=== PATIENT | female | born 1985 | race Caucasian/White ===

== ENCOUNTER 2019-05-11 09:01 | Emergency (ER) | payer OTHER, SELFPAY ==
--- NOTE | ~2019-05-11 | XR_ITS ---
EXAMINATION: [id number] EXAM DATE: 05/11/2019 09:55 INDICATION: Left-sided rib pain after coughing, symptoms one month. 31 weeks . TECHNIQUE: Frontal chest x-ray, frontal and oblique projections of the left ribs. There is no prior study for comparison. FINDINGS: The left 10th rib has a contour distortion, coarse alteration laterally, probably a fractu re. This is age indeterminate, clinical correlation. No confluent consolidation, pneumothorax or pleu ral effusion suspected. IMPRESSION: Age-indeterminate left 10th rib fracture laterally. Clinical correlation. Reviewed, dictated and finalized at location B. [place] IMPRESSION: Age-indeterminate left 10th rib fracture laterally. Clinical corre lation.
[2019-05-11 09:11] VITALS: BP 101/59; PULSE 103; RESP 20; TEMP 37.3; O2SAT 98
--- NOTE | 2019-05-11 09:19 | ED.URI ---
HPI - URI/Sore Throat General Chief Complaint: Upper Respiratory Infection Stated Complaint: cough/rib pain Time Seen by Provider: 05/11/19 09:19 Source: patient, family and RN notes reviewed History of Present Illness HPI Narrative: Patient is a 33-year-old female presents the urgent care with complaints of left-sided rib pain and chronic cough. Patient states that she has had upper respiratory-like symptoms with cough since before . Patient states that her son was diagnosed with RSV and she feels that both of them have been coughing since then. Patient states she has seen her OB since the cough started and was told to wait it out and use [id number] medications safe for . Patient states that last night she was bearing herself for a cough and felt a severe left-sided pop . Patient states that now it is difficult just to move due to the pain. Patient states that it is difficult to take a deep breath. Patient also reports an episode of chest pain after Mucinex. Patient denies fever, chills, nausea, vomiting. Currently denies chest pain or shortness of breath. No other acute complaints. Patient is tearful. Patient and spouse aware of the plan of care. Related Data Home Medications Medication Instructions Recorded Confirmed Mucinex 05/11/19 Vitamin 05/11/19 ascorbic acid (vitamin C) 05/11/19 Allergies Allergy/AdvReac Type Severity Reaction Status Date / Time amoxicillin Allergy Hives Verified 05/11/19 09:20 Review of Systems Review of Systems: Narrative: CONSTITUTIONAL: Denies fever, chills, or sweats. EYES: Denies visual changes, redness, or discharge. ENT: Denies rhinorrhea, congestion, sore throat, or otalgia. CARDIOVASCULAR: Denies chest pain, palpitations, or edema. RESPIRATORY: Reports of cough with difficulty taking deep breath GASTROINTESTINAL: Denies abdominal pain, nausea, vomiting, or diarrhea. GENITOURINARY: Denies dysuria or hematuria. SKIN: Denies rash or itching. MUSCULOSKELETAL: Denies back pain, joint pain, or myalgia. NEUROLOGIC: Denies headache, numbness, or weakness.PSYCHIATRIC: Denies anxiety or depression. PMFSH Comments At the time of my signature, I reviewed and agree with the nursing past medical, surgical, social, and family history. There is no relevant family history pertinent to the patient complaint. Exam Narrative: Exam Narrative: GENERAL: This is a well-nourished, well-developed patient, tearful HEAD: normocephalic, atraumatic. EYES: PERRL. Sclera clear/white. Vision is grossly intact. EARS: External ears normal, auditory canals clear and without drainage, TMs normal without perforation. Hearing grossly intact. NOSE: External nose normal with no obvious nasal discharge, erythemic bilateral nares with clear rhinorrhea THROAT: Mucous membranes moist, posterior pharynx clear. NECK: Neck supple CARDIOVASCULAR: Regular rate and rhythm without murmurs, gallops, or rubs. RESPIRATORY: Clear to auscultation. Breath sounds equal bilaterally. No wheezes, rales, or rhonchi. Obvious pain with deep breathing, shallow breathing. Extreme point tenderness to posterior lateral ribs and left lateral torso SKIN: warm, intact with no suspicious lesions or rash, good texture and turgor. NEURO: awake, alert, and oriented to person, place and time. There were no obvious focal neurologic abnormalities. EXTREMITIES: No clubbing, cyanosis, or edema. Course Vital Signs Vital signs: Vital Signs Temperature 99.2 F 05/11/19 09:11 Pulse Rate 103 H 05/11/19 09:11 Respiratory Rate 05/11/19 09:11 Blood Pressure 101/59 L 05/11/19 09:11 Pulse Oximetry 98 05/11/19 09:11 Temperature 99.2 F 05/11/19 09:11 Pulse Rate 103 H 05/11/19 09:11 Respiratory Rate 05/11/19 09:11 Blood Pressure 101/59 L 05/11/19 09:11 Pulse Oximetry 98 05/11/19 09:11 Reviewed MDM - URI/Sore Throat MDM Narrative Medical decision making narrative: Reviewed x-ray resul
--- NOTE | 2019-05-11 09:38 | PC.NURSE ---
After exam and discussion Ranjit Leblanc NP called and spoke with OB office at [facility]--[place]--will get a Left rib and one view CXR
== END 2019-05-11 10:18 | disposition home or self-care (01) ==
PROVIDERS: Emergency Provider Nurse Practitioner Family
DX: S22.32XA Fracture of one rib, left side, initial encounter for closed fracture (principal); X58.XXXA Exposure to other specified factors, initial encounter
CPT/HCPCS: 71101; 99213; G0463

== ENCOUNTER 2020-08-19 11:42 | Emergency (ER) | payer OTHER, SELFPAY ==
--- NOTE | ~2020-08-19 | US_ITS ---
EXAMINATION: US abdomen limited DATE: 08/19/2020 15:01 INDICATION: Right upper quadrant abdominal pain. TECHNIQUE: Multiple grayscale and Doppler ultrasound images of the abdomen were obtained. COMPARISON: None FINDINGS: Pancreas is normal. Liver has normal echogenicity and contour, with a smooth surface. No liver lesion identified. No intrahepatic biliary duct dilation suspected. Portal venous flow was seen in the hepa topetal, normal direction and has normal Doppler waveform. The gallbladder is normal in appearance. There is no cholelithiasis. The common bile duct measures 4 mm, which is normal. Sonographic Mason s ign was reported as negative by the [employer].The visualized proximal to mid inferior vena cava is normal. IMPRESSION: 1. Normal right upper quadrant ultrasound. Reviewed, dictated and finalized at location A.
[2020-08-19 11:47] VITALS: BP 103/63; PULSE 86; RESP 18; TEMP 36.3; O2SAT 99
[2020-08-19 12:05] LABS: Basophils Percent Auto 0.2 % (0.2-1.2); Eosinophils Absolute Auto 0.2 K/mm3 (0-0.3); Eosinophils Percent Auto 2.4 % (0-4.4); Hematocrit 41.9 % (37.0-47.0); Hemoglobin 13.9 g/dL (12.0-15.0); Immature Granulocyte Absolute 0.03 K/mm3 (0.00-0.031); Immature Granulocyte Percent A 0.4 % (0-0.5); Lymphocytes Absolute Auto 0.54 K/mm3 (0.9-3.2); Lymphocytes Percent Auto 6.7 % (18.3-44.2); Mean Corpuscular HGB Conc 33.2 g/dl (32-36); Mean Corpuscular Hemoglobin 28.8 pg (26-34); Mean Corpuscular Volume 86.9 fl (80-100); Mean Platelet Volume 9.9 fl (7.4-10.4); Monocytes Absolute Auto 0.4 K/mm3 (0.1-0.6); Monocytes Percent Auto 5.1 % (2.6-8.5); Neutrophils Absolute Auto 6.8 K/mm3 (1.3-6.7); Neutrophils Percent Auto 85.2 % (45.5-73.1); Platelet Count Result 220 k/mm3 (150-375); Red Blood Count 4.82 M/mm3 (4.2-5.4); Red Cell Distribution Width 13.4 % (11.5-14.5)
[2020-08-19 12:12] LABS: Add Urine Microscopic? YES; Appearance Urine Cloudy (Clear); Bacteria Urine Trace /hpf; Bilirubin Urine Negative (Negative); Blood Urine Negative (Negative); Color Urine Yellow (Yellow); Glucose Urine UA Negative (Negative); Ketones Urine Negative (Negative); Leukocyte Esterase Ur Negative LEU/UL (Negative); Mucus Urine Rare /lpf; Nitrate Urine Negative (Negative); Protein Urine Negative (Negative); Specific Grav Ur 1.023 (1.001-1.035); Squamous Epithelial Cell Urine Many /hpf (Few); Urobilinogen Urine Negative mg/dL (<2.0); WBC Urine 0-3 /hpf
[2020-08-19 12:13] LABS: Alanine Aminotransferase 15 U/L (4-35); Albumin Level 4.7 g/dL (3.5-5.1); Alkaline Phosphatase 60 U/L (38-126); Anion Gap 6 mmol/L (8-16); Aspartate Amino Transferase 27 U/L (14-36); Bilirubin,Total 0.6 mg/dL (0.2-1.3); Blood Urea Nitrogen 14 mg/dL (7-17); Calcium 8.5 mg/dL (8.4-10.2); Carbon Dioxide 24 mmol/L (22-30); Chloride 109 mmol/L (98-107); Estimated CRCL calculation 75 ml/min; Estimated Glomerular Filt Rate > 60; Glucose 96 mg/dL (65-105); Lipase 202 U/L (23-300); Potassium 3.8 mmol/L (3.4-5.0); Sodium 139 mmol/L (137-145)
--- NOTE | 2020-08-19 12:57 | PC.NURSE ---
Called to room, pt concerned with her saline lock IV. States she cannot bend her arm very well with the placement of IV. Pt c/o IV looking like it is not in correctly. Flushed saline lock with 10mls of NS - Flushes with no difficulty. Pt denies any requests at this time.
[2020-08-19 13:34] VITALS: BP 116/63; PULSE 67; RESP 18; O2SAT 95
[2020-08-19] MEDS: DICYCLOMINE HCL INJ 20 MG/2 ML VIAL IM (13:51)
[2020-08-19 14:46] VITALS: BP 101/59; PULSE 80; RESP 18; O2SAT 95
--- NOTE | 2020-08-19 16:20 | ED.ABDPAIN ---
HPI - Abdominal Pain General Chief Complaint: Abdominal Pain Stated Complaint: Abd Pain Time Seen by Provider: 08/19/20 12:00 Source: patient Mode of arrival: ambulatory Limitations: no limitations History of Present Illness HPI narrative: 35-year-old female In good health 2 prior C-sections Complains of crampy upper abdominal pain and some nausea She was seen by her PCP and there is some concern that this could be biliary disease Currently her symptoms are fairly mild, she has no vomiting or diarrhea, she denies any dysuria or hematuria Her last menstrual period was a month ago and she is about due, bedside is negative Related Data Allergies Allergy/AdvReac Type Severity Reaction Status Date / Time No Known Allergies Allergy Verified 08/19/20 11:51 Review of Systems Review of Systems: All systems reviewed & are unremarkable except as noted in HPI and below Constitutional: Constitutional: Reports no additional constitutional complaints, Denies chills, Denies fever(s) and Denies headache(s) Eyes: Eyes: Reports no additional eye complaints and Denies change in vision ENT: Denies headache(s) and Denies sore throat Cardiovascular: Cardiovascular: Denies chest pain and Denies dyspnea Respiratory: Respiratory: Denies cough and Denies dyspnea Gastrointestinal: Gastrointestinal: Reports abdominal pain, Denies constipation, Denies diarrhea, Reports nausea and Denies vomiting Genitourinary: Genitourinary: Denies hematuria, Denies urinary frequency, Denies nocturia and Denies dysuria Musculoskeletal: Musculoskeletal: Denies deformity and Denies numbness Integumentary/Breasts: Skin/Breast: Denies wounds Neurologic: Denies headache(s) Psychiatric: Psychiatric: Reports no additional psychiatric complaints Endocrine: Endocrine: Reports no additional endocrine complaints Hematologic/Lymphatic: Hematologic/Lymphatic: Reports no additional hematologic/lymphatic complaints Allergic/Immunologic: Allergic/Immunologic: Reports no additional allergic/immunologic complaints PMFSH Social History Social History Gender identity (if verbalized by the patient): Female Exam Const: General: cooperative, healthy appearing, no acute distress and alert Orientation/consciousness: patient oriented x3 (alert) HENMT: Head: normal to inspection, normocephalic and atraumatic Ears: external ears normal General nose exam: no epistaxis Eyes: Conjunctivae: conjunctivae normal EOM: EOMs intact bilaterally Neck: Neck: normal visual inspection, supple and no JVD Resp: Effort & Inspection: normal respiratory effort and not labored Auscultation: clear to auscultation bilaterally and other (BS =) Cardio: Rate: regular rate Rhythm: regular rhythm GI: Inspection: non-distended GI Palp: Yes Soft to palpation, Yes Tenderness to palpation present (GI), No Guarding due to palpation present (GI) and No Rebound tenderness present Other: She has mild tenderness in the right upper quadrant during inspiration and also a little bit of suprapubic tenderness There is no rebound or guarding There is no tenderness in the right lower quadrant or around McBurney's point : Other: Mild right-sided CVA tenderness Skin: General skin exam: normal color and no rashes or lesions noted Neuro: General: patient oriented x3 (alert) and moves all extremities Speech: normal speech Extrem: General: normal to inspection and no pedal edema Psych: Affect: normal affect Course Course Emergency Course: She is feeling quite a lot better at discharge after medications Discussed reassuring results of all her tests and that that would just suggest that she return if anything gets worse and recommend no further work-up at this point Vital Signs Vital signs: Vital Signs Temperature 36.3 C L 08/19/20 11:47 Pulse Rate 86 08/19/20 11:47 Respiratory Rate 18 08/19/20 11:47 Blood Pressure 103/63 08/19/20 11:47 Pulse Oximetry 99
[2020-08-19 16:26] VITALS: BP 101/59; PULSE 80; RESP 18; O2SAT 97
== END 2020-08-19 16:27 | disposition home or self-care (01) ==
PROVIDERS: Emergency Provider Emergency Medicine; PCP Internal Medicine
DX: R10.10 Upper abdominal pain, unspecified (principal)
CPT/HCPCS: 36415; 76705; 80053; 81001; 81025; 83690; 85025; 96372; 99284; J0500

== ENCOUNTER 2021-04-10 08:35 | Outpatient (CLI) | payer OTHER, SELFPAY ==
--- NOTE | 2021-04-10 08:45 | ECG_ITS ---
Measurements Intervals [place] Rate: 60 P: 74 HI: 137 QRS: 69 QRSD: 95 T: 42 QT: 389 QTc: 389 Interpretive Statements SINUS RHYTHM INCOMPLETE RIGHT BUNDLE BRANCH BLOCK BASELINE ARTIFACT- I, II, III, AVR, AVL, AVF BORDERLINE ECG Electronically Signed On 04-10-2021 16:48:14 CURRICULUM DIRECTOR by Maged Velasquez D.O.
[2021-04-10 09:21] LABS: Hematocrit 42.2 % (37.0-47.0); Hemoglobin 14.3 g/dL (12.0-15.0)
== END 2021-04-10 08:36 | disposition home or self-care (01) ==
LOC: ANHSURGERY 08:39
PROVIDERS: Anesthesiology; PCP Internal Medicine; Visit Provider Surgery Plastic and Reconstructive Surgery
DX: Z41.1 Encounter for cosmetic surgery (principal); I45.10 Unspecified right bundle-branch block
CPT/HCPCS: 36415; 85014; 85018; 93005

== ENCOUNTER 2021-04-13 00:34 | Day surgery (SDC) | payer OTHER, SELFPAY ==
[2021-04-04 15:48] VITALS: BMI 26.2
--- NOTE | 2021-04-04 15:58 | PC.NURSE ---
Report to the Outpatient Waiting Room, entrance under the green pavilion located off [facility], at time 6:00 on date 04/13/21. OR Time: 7:30. - You and your visitor will be asked a series of questions to screen for COVID 19 for your protection. - A mask is required within the hospital. - Only one visitor is allowed at this time. Patient visitors will be guided where to wait when not with patient. Preoperative COVID Testing Requirements: No COVID Test needed if: (proof is required; if not received patient will have Rapid Test prior to entry) - Patient has received COVID Vaccine at least 14 days prior to procedure date or - Patient has positive COVID test result within last 90 days of surgery date. COVID Test needed if above criteria is not met If not COVID vaccinated a COVID test must be conducted within 72 hours of surgery and patient is asked to isolate self from time of testing until procedure. You will go to the [facility] for your COVID testing. The [facility] is located at the corner of [address] [facility]. You will only be called if COVID results are positive and your surgeon may reschedule your elective surgery date. Patients may have clear liquids (water, carbonated beverages, clear teas, apple juice) until 3 hours prior to surgery with a maximum of 20 ounces. - No food from midnight until time of surgery - Infants may have breast milk until 4 hours before surgery, infant formula 6 hours prior to surgery. - Children will be allowed to drink immediately following surgery. If applicable, please bring a bottle or sippy cup to assist with drinking. Juice, water, soda, and popsicles are readily available. For infants on formula, please bring formula the day of surgery. Pacifiers are allowed. Take the following medications with a SIP of water the morning of surgery: ANXIETY PILL IF NEEDED Medications to discontinue per physician: N/A Date to take last dose: N/A Please no make-up, nail mongolian, hairspray, perfume, deodorant, or body powder the day of surgery. No jewelry (including any body piercings) or valuables the day of surgery, leave them at home. Please take a shower or bath the night before, or the morning of, surgery with an antibacterial soap. Wear comfortable, loose fitting clothing. Children are encouraged to wear pajamas. - Jewelry must be removed prior to entering the operating room. Rings and piercings that are not removed may be cut off. - The hospital will not accept responsibility for valuables. - Please leave all valuables, including medications, at home the day of surgery. If you are going home after surgery, a licensed bellman driver must drive you home. - NO public transportation without another adult. - We recommend that an adult stay with you for 24 hours following discharge. - We also recommend that you do not drive, make important decision, drink alcoholic beverages, or take any drugs that were not prescribed by your health care provider for at least 24 hours after your discharge time. For Pediatric surgeries, we recommend two adults accompany the child home (only one inside the building at this time). Follow any additional instructions given to you from your surgeon. Telephone instructions given to MICHELLE BIGGS and asked if any additional questions and then verbalized understanding. Patient advised to call surgeon office or pre surgery nurse liaison [phone] if any additional questions.
--- NOTE | 2021-04-12 14:02 | P.PNAN_ITS ---
Anes - Initial Pre Proc Eval Procedure: Operation Date: 04/13/21 07:30 Proposed Procedures p Bilateral Breast Augmentation, - Jose Eduardo Frank MD s Abdominoplasty with Liposuction - Jose Eduardo Frank MD Date/Time: 04/12/21 14:02 Surgeon: Jose Eduardo Frank MD Pre Op Diagnosis: micromastia, skin laxity Patient Data Age: 35 Gender: F Height: 1.7 m Weight: 75.75 kg Allergies Allergy/AdvReac Type Severity Reaction Status Date / Time No Known Allergies Allergy Verified 04/04/21 15:47 Home Medications Medication Instructions Recorded Confirmed Type norethindrone 1 mg-ethinyl 1 tablet PO DAILY 11/22/20 04/04/21 History estradiol 10 mcg (24)-iron 10 mcg(2) tablet docusate sodium 100 mg capsule 100 mg PO DAILY #14 cap 03/30/21 04/04/21 Rx ondansetron HCl 4 mg tablet 4 mg PO Q8H #21 tablet 03/30/21 04/04/21 Rx carisoprodol 350 mg tablet 350 mg PO TID PRN #21 tablet 03/31/21 04/04/21 Rx diazepam 5 mg tablet 5 mg PO TID PRN #7 tablet 03/31/21 04/04/21 Rx oxycodone-acetaminophen 5 mg-325 1 tablet PO Q6H PRN #30 tablet 03/31/21 04/04/21 Rx mg tablet Patient hx anesthesia problems: none Family hx anesthesia problems: none Results Review: All pre-operative results and documents have been reviewed as part of the pre-operative evaluation. [facility] Past Medical History Medical History (Updated 04/12/21 @ 14:03 by Cale Moreira DO) Migraine Surgical History Surgical History History of Social History Social History Smoking status: Never smoker Alcohol intake: current Drinks per week: 1 Substance use: never Substance use type: does not use Living arrangements: with family Gender identity (if verbalized by the patient): Female Spiritual care concerns: No Anes - Eval Final PreProcedure Day of Procedure 04/12/21 14:02 Patient weight: overweight Heart: regular rate and rhythm Lungs: clear to auscultation and normal air movement Airway: Mallampati scale class II Neurological: alert and oriented Last oral intake: >/= 8 hours ASA classification: II Emergent: no Anesthetic plan: proceed Anesthesia type and monitoring: general ETT and standard monitoring Results Review: All pre-operative results and documents have been reviewed as part of the pre-operative evaluation. Informed Consent: The patient's anesthetic plan and its attendant risks and benefits were discussed with the patient/family/POA. Questions were solicited and answers provided to the satisfaction of the patient/family/POA.
[2021-04-13] VITALS (13 sets, daily range): BP systolic 93–121; BP diastolic 56–76; PULSE 80–94; RESP 16–20; TEMP 36.4–36.9; O2SAT 93–100
[2021-04-13 06:33] LABS: Urine Cotinine NEGATIVE
[2021-04-13] MEDS: LACTATED RINGERS 1,000 ML 30 ML IV CONT ×2 (06:38→12:38)
--- NOTE | 2021-04-13 07:13 | W.PM.PROC2 ---
Procedure Note - Detailed Date of Procedure 04/13/21 Pre-op Diagnosis micromastia, skin laxity, localized adiposity Post-op Diagnosis same Procedure Performed 1. Bilateral breast augmentation 2. Progressive tension abdominoplasty 3. Suction lipectomy abdomen Surgeon Jose Eduardo Frank MD Anesthesia general Findings Bilateral Dual plane 2 augmentation Jessica Saline implants filled to 440cc Right REF#[id number] SN [id number] Left REF# [id number] SN [id number] Suction lipectomy volume 2350 cc Abdominoplasty weight 1514 grams Description of Procedure She is here today for the above. Previously and again today the risks, benefits, alternatives were discussed in extensive detail. I wanted them to be very realistic about the risks involved as well as expectations. We discussed aftercare and what to monitor for. I was very upfront about the risks of wound breakdown leading to loss of skin, open wounds, and need for additional procedures with permanent abdominal deformity. We discussed DVT/PE risks and management. Made sure answered all of their questions to their satisfaction today and consent was obtained. Marked in the preoperative holding area with their verification. The patient was taken to the operating room placed supine on the operating table. Anesthesia was provided by anesthesiology. A surgical time-out was taken. We cleansed the skin and 1% lidocaine and 0.25% Marcaine with epinephrine was used anesthetize as a field block. She was prepped and draped in a standard sterile fashion. Breast Tegaderm nipple Nieves were placed. A 15 blade used to make an incision along the inframammary fold. Dissection was continued at 45 degree angle until the chest wall as identified. I incised the pectoralis major along its inferior border and completely released the inferior border leaving the medial border intact. I created a subpectoral pocket in the appropriate dimensions based on our preoperative planning for the implant. I then copiously irrigated with saline solution and verified a strict hemostasis. Next the use a triple antibiotic and Betadine containing solution to irrigate the pocket. I washed my gloves with the triple antibiotic and Betadine solution. We washed the implant immediately upon opening it with this solution and only opened it when we needed it. Air was removed from the implant on the back table, was introducted into the pock, and filled with a fill kit to the volume as above. Having verified positioning of the implant this was closed using 2-0 Vicryl followed by 3-0 Monocryl in a running subcuticular 4-0 Monocryl followed by tissue glue. Abdomen A 5mm liposuction basket cannula was utilized to provide discontinuous undermining. S.A.F.E. liposuction was completed in multiple planes and passes based on preoperative planning and rolling pinch test for abdomen. Patient was prepped 360 and I turned her side to side during this portion of the procedure. A 10 blade was used to make the upper incision. I continued dissection down to the level of fascia. Elevated just what was necessary for repair of the diastasis. I then again flexed the bed to verify the upper skin flap would reach the lower markings without tension. Once verified I placed her supine once again and a 10 blade used to make the lower incision. I elevated up to level the umbilicus and left the umbilicus intact on a well-vascularized stalk. The intervening tissue was removed. A 2 mm blunt cannula with 0.5% bupivicaine was injected deep to the fascia bilaterally. I plicated the diastasis recti using 0 PDO stratafix barbed suture. This was in 2 separate layers using 2 separate sutures as well. I repaired around the umbilicus leaving plenty of room for well-vascularized stalk of the umbilicus with 2-0 PDS. I also repaired lateral to the rectus using two layers of 0 PDO stratafix. The patient was flexed and starting from superior to inferior began plication using
[2021-04-13] MEDS: TRANEXAMIC ACID 1,000MG/ISO100 1,000 MG/100 ML BAG 200 MG IVPB (07:25)
--- NOTE | 2021-04-13 07:26 | WPDHPUPDATE1 ---
History and Physical Update Update Date/Time: 04/13/21 07:26 History and Physical has been reviewed, including an updated exam of the patient. There are NO changes in the patient's condition. Risks, benefits, and alternatives have been discussed and questions answered. Patient agrees to proceed with procedure.
[2021-04-13] MEDS: ceFAZolin 2 GM/D5W 50 ML 2 GM/50 ML BAG IVPB (07:31)
[2021-04-13] MEDS: LACTATED RINGERS IRRIG 1,000 ML, LIDOCAINE HCL 1% LOCAL INJ 50 ML, EPINEPHrine HCL INJ ... INFILTRATE (07:31)
[2021-04-13] MEDS: LIDO 1%/EPINEPHRINE 1:100,000 50 ML VIAL 30 ML INFILTRATE (07:31)
[2021-04-13] MEDS: BUPIVACAINE HCL 0.5% PF 30 ML VIAL 50 ML INFILTRATE (09:32)
[2021-04-13] MEDS: ceFAZolin SODIUM 1 GM VIAL IV PUSH (11:55)
--- NOTE | 2021-04-13 12:11 | SUR.OPER ---
ebl:100CC, uRINE:150CC
--- NOTE | 2021-04-13 13:19 | SUR.PHASEI ---
Simple mask removed at 1316.
[2021-04-13] MEDS: fentaNYL CITRATE INJ (*CRX) 100 MCG/2 ML VIAL 25 MCG IV PUSH ×3 (13:30→14:06)
--- NOTE | 2021-04-13 14:50 | ADMGEN ---
1432-This patient, Tawana Shafer, was admitted to OB 2nd Floor Room 289-00. Patient/family oriented to hospital policies and general routines including ID bracelet, bed and alarms, visiting hours, pain management, procedures, bathroom and other care routines, personal items, smoking policy, room service/diet, and visiting hours. Information on how to activate the Rapid Response Team has been discussed. Patient/Family are encouraged to report perceived risks to care and to ask questions if they do not understand what they are told or what they should do.
[2021-04-13] MEDS: MORPHINE SULFATE (*CRX) 2 MG/ML INJ IV PUSH ×3 (15:03→20:59)
[2021-04-13] MEDS: LACTATED RINGERS 1,000 ML 125 ML IV CONT ×2 (15:04→22:51)
[2021-04-13] MEDS: oxyCODONE/ACETAMINOPHEN (*CRX) 5-325 MG TABLET PO ×2 (16:35→22:55)
[2021-04-13] MEDS: carisoprodoL (*CRX) 350 MG TABLET PO (17:39)
[2021-04-13] MEDS: ENOXAPARIN 40 MG/0.4 ML SYRINGE SUB-Q (18:51)
[2021-04-13] MEDS: DOCUSATE SODIUM 100 MG CAPSULE PO (20:59)
[2021-04-14 00:30] VITALS: BP 101/68; PULSE 93; RESP 18; TEMP 36.6; O2SAT 98
[2021-04-14] MEDS: carisoprodoL (*CRX) 350 MG TABLET PO ×2 (01:07→08:31)
[2021-04-14] MEDS: MORPHINE SULFATE (*CRX) 2 MG/ML INJ IV PUSH ×2 (01:07→04:23)
[2021-04-14 04:00] VITALS: BP 88/60; PULSE 95; RESP 16; TEMP 36.4; O2SAT 95
[2021-04-14 08:00] VITALS: BP 92/45; PULSE 81; RESP 18; TEMP 36.6
--- NOTE | 2021-04-14 08:21 | WPDPN ---
Progress Note: A&P Assessment and Plan (1) Skin laxity: Code(s): L57.4 - Cutis laxa senilis Status: Acute Assessment and Plan: She is doing very well after bilateral breast augmentation, progressive tension abdominoplasty, suction lipectomy of abdomen. Will discharge home. Follow up. Today we had a lengthy discussion about the care. What monitor for. When to proceed to the ER/dial 911. She understands we are available for any questions or concerns. We will see her back. (2) Micromastia: Code(s): N64.82 - Hypoplasia of breast Status: Acute (3) Localized adiposity: Code(s): E65 - Localized adiposity Status: Acute Subjective Date/time seen: 04/14/21 07:30 Overnight had significant discomfort. She says this morning she is much improved. No fevers or chills. No nausea vomiting. No shortness of breath. No chest pain. No calf tenderness. She has been ambulating. She has been tolerating diet. She has been able to void 2 times overnight. Review of Systems Review of Systems: All systems reviewed & are unremarkable except as noted in HPI and below Exam Narrative: Alert and oriented no obvious distress Respiratory unlabored Bilateral breasts are soft. No signs of infection. No hematoma. No seroma. Abdomen is healing well. No signs of infection. No hematoma. No seroma. Good color and capillary refill No calf tenderness. Negative Homans. Objective Data Vital Signs Vital Signs: Vital Signs - 24 hr 04/13/21 12:38 04/13/21 12:50 04/13/21 13:05 Temperature 36.6 C Pulse Rate 87 85 81 Respiratory Rate 20 18 16 Blood Pressure 112/74 114/75 118/75 Pulse Oximetry 100 100 100 04/13/21 13:20 04/13/21 13:35 04/13/21 13:50 Temperature 36.6 C 36.4 C 36.6 C Pulse Rate 85 81 83 Respiratory Rate 18 16 18 Blood Pressure 115/75 111/72 112/74 Pulse Oximetry 96 97 99 04/13/21 14:05 04/13/21 14:20 04/13/21 14:25 Temperature Pulse Rate 94 88 Respiratory Rate 20 18 Blood Pressure 121/76 110/72 Pulse Oximetry 95 95 95 04/13/21 14:35 04/13/21 14:40 04/13/21 19:06 Temperature 36.9 C 36.8 C Pulse Rate 94 88 87 Respiratory Rate 16 18 16 Blood Pressure 107/69 111/71 Pulse Oximetry 93 95 97 04/14/21 00:30 04/14/21 04:00 Temperature 36.6 C 36.4 C Pulse Rate 93 95 Respiratory Rate 18 16 Blood Pressure 101/68 88/60 L Pulse Oximetry 98 95 Intake/Output Intake/Output: Intake & Output 04/11/21 04/12/21 04/13/21 04/14/21 23:59 23:59 23:59 23:59 Intake Total 2330 1680 Output Total 785 700 Balance 1545 980 Meds/Results Medications: Active Medications Generic Name Dose Route Start Last Admin Trade Name Freq PRN Reason Stop Dose Admin Carisoprodol 350 mg 04/13/21 18:00 04/14/21 01:07 Carisoprodol (*Crx) 350 Mg Tablet PO 350 mg Q6HR [place] Administration Diazepam 5 mg 04/13/21 12:26 Diazepam (*Crx) 5 Mg Tablet PO TID PRN Anxiety Docusate Sodium 100 mg 04/13/21 21:00 04/13/21 20:59 Docusate Sodium 100 Mg Capsule PO 100 mg Q12HR [place] Administration Enoxaparin Sodium 40 mg 04/13/21 19:00 04/13/21 18:51 Enoxaparin 40 Mg/0.4 Ml Syringe SUB-Q 40 mg DAILY [place] Administration Lactated Ringer's 1,000 mls @ 125 mls/hr 04/13/21 12:30 04/14/21 06:01 Lr - Lactated Ringers Iv IV CONT Infused .Q8H [place] Infusion Morphine Sulfate 2 mg 04/13/21 12:26 04/14/21 04:23 Morphine Sulfate (*Crx) 2 Mg/Ml Inj IV PUSH 2 mg Q2H PRN Administration Pain Ondansetron HCl 4 mg 04/13/21 12:26 Ondansetron Inj 4 Mg/2 Ml Vial IV PUSH Q6H PRN Nausea Oxycodone/Acetaminophen 1 - 2 tablet 04/13/21 12:26 04/13/21 22:55 Oxycodone/Acetaminophen (*Crx) 5-325 Mg Tablet PO 1 tablet Q6H PRN Administration Pain
--- NOTE | 2021-04-14 08:26 | P.DS_ITS ---
DS: Admitting Diagnosis Discharge Date 04/14/2021 Admitting Diagnosis 1. Micromastia 2. Skin laxity 3. Localized adiposity DS: Discharge Diagnosis Discharge Diagnosis (1) Micromastia: Code(s): N64.82 - Hypoplasia of breast Status: Acute (2) Skin laxity: Code(s): L57.4 - Cutis laxa senilis Status: Acute (3) Localized adiposity: Code(s): E65 - Localized adiposity Status: Acute DS: Summary Hospital Course Hospital Course: She underwent bilateral breast augmentation, progressive tension abdominoplasty, and suction lipectomy of abdomen uneventfully. Postoperatively she has done well. Pain controlled. Ambulating. Tolerating diet. Will discharge home. Time Spent with Patient Time attestation: Total time spent providing and/or coordinating discharge services: 25 minutes Exam Narrative: Alert and oriented no obvious distress Respiratory unlabored Bilateral breasts are soft. No signs of infection. No hematoma. No seroma. Abdomen is healing well. No signs of infection. No hematoma. No seroma. Good color and capillary refill No calf tenderness. Negative Homans. Discharge Plan Discharge Patient Disposition: Home, Self-Care Discharge Instructions: POST OPERATIVE DISCHARGE INSTRUCTIONS JOSE EDUARDO FRANK M.D. [facility] [address] [place] [address] * No driving for 24 hours after anesthesia and while you are taking pain m edication. * Take all prescribed medication as directed * Diet as tolerated. * No lifting or activity that raises blood pressure for 48 hours. * Regular walking / ambulation. * No showering until directed to. Once you shower do not take pain medication before showering as the combination of medication and heat may cause you to feel dizzy or pass out. * No pools or tubs for 2 weeks. * Call with any questions or concerns. * Slowly stand up straight as tolerated over the week. * No straining or lifting more than 23 pounds for 6 weeks. * Dressing Care: May shower. Continue compression 23 hours per day with surgical bra / abdominoal binder. If you have any questions or concerns, please call the office . If it is after hours you will be directed to the senior information security analyst exchange. Shortness of b reath, chest pain, or other medical emergency dial 911 / proceed to the Emergency Room. Stand Alone Forms: General Discharge Instructions Follow-up/Referrals: Jose Eduardo Frank MD [Physician] - 1 Week Discharge Medications: Continued Lo Loestrin Fe 1 mg-10 mcg (24)/10 mcg (2) tablet 1 tablet PO DAILY RF: 0 ondansetron HCl [Zofran] 4 mg tablet 4 mg PO Q8H Qty: 21 RF: 0 docusate sodium [Colace] 100 mg capsule 100 mg PO DAILY Qty: 14 RF: 0 carisoprodol [Soma] 350 mg tablet 350 mg PO TID PRN (Reason: muscle pain) Qty: 21 RF: 0 oxycodone-acetaminophen [Percocet] 5-325 mg tablet 1 tablet PO Q6H PRN (Reason: pain) Qty: 30 RF: 0 diazepam [Valium] 5 mg tablet 5 mg PO TID PRN (Reason: anxiety) Qty: 7 RF: 0
[2021-04-14] MEDS: ENOXAPARIN 40 MG/0.4 ML SYRINGE SUB-Q (08:29)
[2021-04-14] MEDS: DOCUSATE SODIUM 100 MG CAPSULE PO (08:30)
[2021-04-14] MEDS: oxyCODONE/ACETAMINOPHEN (*CRX) 5-325 MG TABLET PO ×2 (08:30→11:16)
== END 2021-04-14 12:24 | disposition home or self-care (01) ==
LOC: ANHSURGERY 07:26 → ANHOB2 14:38
PROVIDERS: PCP Internal Medicine; Visit Provider Surgery Plastic and Reconstructive Surgery
PROC: (CPT 19325; principal; 2021-04-13 07:30)
PROC: (CPT 19325; 2021-04-13 07:30)
DX: Z41.1 Encounter for cosmetic surgery (principal); L57.4 Cutis laxa senilis; N64.82 Hypoplasia of breast; E65 Localized adiposity; Z79.899 Other long term (current) drug therapy
CPT/HCPCS: 19325; 15830; 15847; 15877; 80307; 99199; A9270; J0171; J0690; J1170; J1580; J1650; J2250; J2270; J3010; J7120; P9047